=== PATIENT | male | born 2000 | race African-American/Black ===

== ENCOUNTER 2019-12-09 04:02 | Emergency (ER) | payer SELFPAY ==
[~2019-12-09] VITALS: Ht 182.9 cm; Wt 96.0 kg
[2019-12-09] MEDS ORDERED: MORPHINE SULFATE 4 MG/ML CPJ (NOT FOR IM USE) IV STA (04:35)
[2019-12-09] MEDS ORDERED: ONDANSETRON HCL 4MG/2ML INJ IV STA (04:35)
[2019-12-09] MEDS ORDERED: SODIUM CHLORIDE 0.9% 1,000 ML IV ONE (04:35)
[2019-12-09 07:10] VITALS: BP 123/73
== END 2019-12-09 07:13 | disposition home or self-care (01) ==
LOC: ER 04:02
DX: S43.005A Unspecified dislocation of left shoulder joint, initial encounter (principal); X58.XXXA Exposure to other specified factors, initial encounter; Y93.89 Activity, other specified; Y92.013 Bedroom of single-family (private) house as the place of occurrence of the external cause
CPT/HCPCS: 73030; 93005; 96361; 96374; 96375; 99284; J2270; J2405; J7030